=== PATIENT | female | born 1940 | race Two or more races ===

== ENCOUNTER 2023-06-26 13:36 | Inpatient (IN) | payer OTHER ==
[~2023-06-26] VITALS: Ht 170.2 cm; Wt 70.0 kg
[2023-06-26] MEDS ORDERED: NITROGLYCERIN 0.4 MG SL TAB SL PRN (17:45)
[2023-06-26] MEDS ORDERED: MORPHINE SULFATE INJ 2 MG/ml SYRG IV PRN (17:45)
[2023-06-26 17:54] VITALS: BP 110/61; PULSE 85; RESP 18; TEMP 98.1; O2SAT 91
[2023-06-26] MEDS ORDERED: LEVALBUTEROL HCL 1.25 MG/3 ML NEB NEB SCH (18:00)
[2023-06-26] MEDS: LEVALBUTEROL HCL 1.25 MG/3 ML NEB NEB SCH (18:00)
[2023-06-26] MEDS: IPRATROPIUM BROM 0.5 MG/2.5ML INH SOL NEB SCH (18:00)
[2023-06-26] MEDS ORDERED: LEVALBUTEROL HCL 1.25 MG/3 ML NEB ONE (19:24)
[2023-06-26] MEDS ORDERED: IPRATROPIUM BROM 0.5 MG/2.5ML INH SOL ONE (19:24)
[2023-06-26] MEDS ORDERED: BUDESONIDE (INHALATION) 0.5 MG/2 ML NEB ONE (19:24)
[2023-06-26 19:39] VITALS: O2SAT 92
[2023-06-26 19:40] VITALS: PULSE 78; RESP 20; O2SAT 92
[2023-06-26 20:00] VITALS: BP 108/42; PULSE 78; PULSE 80; RESP 17; TEMP 96.7; O2SAT 92
[2023-06-26] MEDS ORDERED: LOSA50TA46 PO (20:04)
[2023-06-26] MEDS ORDERED: GLIP10TA9 PO ×2 (20:04)
[2023-06-26] MEDS ORDERED: OXYB10GE PO (20:04)
[2023-06-26] MEDS ORDERED: ATEN100T PO (20:04)
[2023-06-26] MEDS ORDERED: HYDR12.59 PO (20:04)
[2023-06-26] MEDS ORDERED: GABA-339 PO (20:04)
[2023-06-26] MEDS ORDERED: SIMV20TA20 PO (20:04)
[2023-06-26] MEDS ORDERED: METF-371 PO (20:04)
[2023-06-26] MEDS ORDERED: CLOP75TA70 PO (20:04)
[2023-06-26] MEDS: SODIUM CHLORIDE 0.9% 1,000 ML IV SCH (21:59)
[2023-06-26 22:00] VITALS: BP 108/42; PULSE 78; RESP 17; TEMP 96.1; O2SAT 92
[2023-06-26] MEDS: BUDESONIDE (INHALATION) 0.5 MG/2 ML NEB NEB SCH (22:00)
[2023-06-26] MEDS: GABAPENTIN 400 MG CAP PO SCH (22:12)
[2023-06-26] MEDS: cefTRIAXone 1GM/50ML D5W 50 ML IV SCH (22:12)
[2023-06-26] MEDS: methylPREDNISolone SOD SUCC 125 MG/2 ML VL IV SCH (22:13)
[2023-06-27] VITALS (15 sets, daily range): BP systolic 97–135; BP diastolic 30–47; PULSE 59–96; RESP 16–20; TEMP 96.7–98.6; O2SAT 91–99
[2023-06-27 05:56] LABS: Anion Gap 10 (5-15); Carbon Dioxide 24 mmol/L (20-30); Chloride 98 mmol/L (98-107); Potassium 4.4 mmol/L (3.5-5.1); Sodium 132 mmol/L (136-145)
[2023-06-27] MEDS: GABAPENTIN 400 MG CAP PO SCH ×3 (05:56→21:46)
[2023-06-27 05:57] LABS: Calcium 8.9 mg/dL (8.5-10.1)
[2023-06-27] MEDS: methylPREDNISolone SOD SUCC 125 MG/2 ML VL IV SCH ×3 (05:57→21:45)
[2023-06-27 05:58] LABS: Basophils # (auto) 0 10 ^3/uL (0-0.2); Basophils % (auto) 0.1 % (0.0-2.0); Eosinophils # (auto) 0 10 ^3/uL (0-0.8); Hematocrit 38.5 % (36.0-46.0); Hemoglobin 12.9 g/dL (12.2-16.2); Lymphocytes # (auto) 0.7 10 ^3/uL (0.4-5.4); Lymphocytes % (auto) 5.9 % (10.0-50.0); Mean Corpuscular Hemoglobin 29.4 pg (28.0-32.0); Mean Corpuscular Hgb Conc. 33.4 g/dL (32.0-36.0); Mean Corpuscular Volume 87.9 fL (80.0-100.0); Monocytes # (auto) 0.2 10 ^3/uL (0-1.3); Monocytes % (auto) 1.8 % (0.0-12.0); Neutrophils # (auto) 10.4 10 ^3/uL (1.6-8.6); Neutrophils % (auto) 92.2 % (37.0-80.0); Nucleated Red Blood Cells % 0.1 %; Red Blood Cells 4.38 10^6/uL (4.0-5.20); Red Cell Distribution Width 13.6 % (11.8-14.3); White Blood Cell 11.2 10^3/uL (4.4-10.8)
[2023-06-27 06:02] LABS: BUN/Creatinine Ratio 29.9 (10.0-20.0); Blood Urea Nitrogen 38 mg/dL (9-23); Glucose 335 mg/dL (74-106)
[2023-06-27] MEDS: BUDESONIDE (INHALATION) 0.5 MG/2 ML NEB NEB SCH ×2 (06:34→18:29)
[2023-06-27] MEDS: LEVALBUTEROL HCL 1.25 MG/3 ML NEB NEB SCH ×3 (06:34→18:29)
[2023-06-27] MEDS: IPRATROPIUM BROM 0.5 MG/2.5ML INH SOL NEB SCH ×3 (06:35→18:29)
[2023-06-27] MEDS: FAMOTIDINE 20 MG TAB PO SCH (10:52)
[2023-06-27] MEDS: ATENOLOL 50 MG TAB PO SCH (10:58)
[2023-06-27] MEDS: ENOXAPARIN SOD 40 MG/0.4 ML SYRINGE SC SCH (13:43)
[2023-06-27] MEDS: SODIUM CHLORIDE 0.9% 1,000 ML IV SCH (13:59)
[2023-06-27 15:12] LABS: COVID19 ANTIGEN SOFIA FIA NEGATIVE (NEGATIVE)
[2023-06-27 15:14] LABS: Rapid Influenza A Negative (Negative); Rapid Influenza B Negative (Negative)
[2023-06-27 21:31] LABS: Urine Bacteria FEW /hpf (None Seen); Urine Blood Negative /uL (Negative); Urine Clarity Clear (Clear); Urine Color Colorless (Yellow); Urine Hyaline Cast FEW /lpf (0 - 2); Urine Mucus FEW (None Seen); Urine Protein, UAD Negative (Negative); Urine Specific Gravity 1.018 (1.001-1.035); Urine Urobilinogen Normal (Negative); Urine WBC 1 /hpf (0 - 5)
[2023-06-27] MEDS: ATORVASTATIN 20 MG TAB PO SCH (21:45)
[2023-06-27] MEDS: cefTRIAXone 1GM/50ML D5W 50 ML IV SCH (21:45)
[2023-06-28] VITALS (13 sets, daily range): BP systolic 94–133; BP diastolic 45–61; PULSE 45–92; RESP 18–20; TEMP 97.3–98.1; O2SAT 92–100
[2023-06-28] MEDS: SODIUM CHLORIDE 0.9% 1,000 ML IV SCH ×2 (03:05→08:57)
[2023-06-28] MEDS: GABAPENTIN 400 MG CAP PO SCH ×3 (05:59→21:11)
[2023-06-28] MEDS: methylPREDNISolone SOD SUCC 125 MG/2 ML VL IV SCH ×3 (05:59→17:45)
[2023-06-28] MEDS: IPRATROPIUM BROM 0.5 MG/2.5ML INH SOL NEB SCH ×3 (06:00→18:59)
[2023-06-28] MEDS: BUDESONIDE (INHALATION) 0.5 MG/2 ML NEB NEB SCH ×2 (06:00→18:59)
[2023-06-28] MEDS: LEVALBUTEROL HCL 1.25 MG/3 ML NEB NEB SCH ×3 (06:00→18:59)
[2023-06-28] MEDS: FAMOTIDINE 20 MG TAB PO SCH (08:57)
[2023-06-28] MEDS: ATENOLOL 50 MG TAB PO SCH (08:58)
[2023-06-28] MEDS: ENOXAPARIN SOD 40 MG/0.4 ML SYRINGE SC SCH (09:02)
[2023-06-28] MEDS ORDERED: IOHEXOL 350 MG/ML 100ML IJ ONE (13:58)
[2023-06-28 17:12] LABS: Chloride 99 mmol/L (98-107); Potassium 4.8 mmol/L (3.5-5.1)
[2023-06-28 17:13] LABS: Anion Gap 8 (5-15); Carbon Dioxide 20 mmol/L (20-30)
[2023-06-28 17:16] LABS: Calcium 8.1 mg/dL (8.5-10.1)
[2023-06-28 17:17] LABS: Sodium 127 mmol/L (136-145)
[2023-06-28 17:18] LABS: Blood Urea Nitrogen 40 mg/dL (9-23)
[2023-06-28 17:28] LABS: Glucose 463 mg/dL (74-106)
[2023-06-28] MEDS ORDERED: DEXTROSE (50%) 50ML SYRG IV PRN (17:45)
[2023-06-28] MEDS: InsuLIN REG 1unit/0.01ml Soln (100units/ml) SC SCH (17:53)
[2023-06-28] MEDS: ACCU-CHEK COMFORT CURVE STRIP VI SCH (17:53)
[2023-06-28] MEDS: ATORVASTATIN 20 MG TAB PO SCH (21:11)
[2023-06-28] MEDS: cefTRIAXone 1GM/50ML D5W 50 ML IV SCH (21:12)
[2023-06-28 21:36] LABS: Urine WBC None Seen /hpf (0 - 5)
[2023-06-28 21:51] LABS: Urine Bacteria NONE SEEN /hpf (None Seen); Urine Blood Negative /uL (Negative); Urine Clarity Clear (Clear); Urine Color Colorless (Yellow); Urine Protein, UAD Negative (Negative); Urine Specific Gravity 1.017 (1.001-1.035); Urine Urobilinogen Normal (Negative); Urine pH 5.5 (5.0-8.0)
[2023-06-29] VITALS (14 sets, daily range): BP systolic 121–141; BP diastolic 57–63; PULSE 64–81; RESP 18–20; TEMP 97.2–98; O2SAT 92–97
[2023-06-29] MEDS: InsuLIN REG 1unit/0.01ml Soln (100units/ml) SC SCH ×5 (00:27→23:49)
[2023-06-29] MEDS: ACCU-CHEK COMFORT CURVE STRIP VI SCH ×5 (00:27→23:42)
[2023-06-29] MEDS ORDERED: DEXTROSE (50%) 50ML SYRG IV PRN (01:30)
[2023-06-29] MEDS ORDERED: InsuLIN REG 1unit/0.01ml Soln (100units/ml) SC ONE (01:30)
[2023-06-29] MEDS ORDERED: SODIUM CHLORIDE 0.9% 500 ML IV ONE (01:30)
[2023-06-29] MEDS: methylPREDNISolone SOD SUCC 125 MG/2 ML VL IV SCH (05:57)
[2023-06-29] MEDS: GABAPENTIN 400 MG CAP PO SCH ×3 (05:57→22:25)
[2023-06-29] MEDS: LEVALBUTEROL HCL 1.25 MG/3 ML NEB NEB SCH ×3 (07:17→19:11)
[2023-06-29] MEDS: IPRATROPIUM BROM 0.5 MG/2.5ML INH SOL NEB SCH ×3 (07:17→19:11)
[2023-06-29] MEDS: BUDESONIDE (INHALATION) 0.5 MG/2 ML NEB NEB SCH ×2 (07:17→19:11)
[2023-06-29] MEDS ORDERED: ATENOLOL 50 MG TAB PO SCH (10:00)
[2023-06-29] MEDS: ENOXAPARIN SOD 40 MG/0.4 ML SYRINGE SC SCH (10:21)
[2023-06-29] MEDS: FAMOTIDINE 20 MG TAB PO SCH (10:25)
[2023-06-29] MEDS: ATENOLOL 50 MG TAB PO SCH (10:25)
[2023-06-29] MEDS: cefTRIAXone 1GM/50ML D5W 50 ML IV SCH (22:26)
[2023-06-29] MEDS: ATORVASTATIN 20 MG TAB PO SCH (22:26)
[2023-06-30] VITALS (17 sets, daily range): BP systolic 115–130; BP diastolic 39–54; PULSE 55–74; RESP 18; TEMP 97.4–98.3; O2SAT 91–100
[2023-06-30] MEDS: ACCU-CHEK COMFORT CURVE STRIP VI SCH ×3 (05:55→18:00)
[2023-06-30] MEDS: GABAPENTIN 400 MG CAP PO SCH ×2 (05:55→14:36)
[2023-06-30] MEDS: InsuLIN REG 1unit/0.01ml Soln (100units/ml) SC SCH ×3 (05:58→18:00)
[2023-06-30] MEDS: IPRATROPIUM BROM 0.5 MG/2.5ML INH SOL NEB SCH ×3 (07:16→19:13)
[2023-06-30] MEDS: BUDESONIDE (INHALATION) 0.5 MG/2 ML NEB NEB SCH ×2 (07:16→19:13)
[2023-06-30] MEDS: LEVALBUTEROL HCL 1.25 MG/3 ML NEB NEB SCH ×3 (07:16→19:13)
[2023-06-30] MEDS: ATENOLOL 50 MG TAB PO SCH (10:00)
[2023-06-30] MEDS ORDERED: IPRA0.00 IN (10:35)
[2023-06-30] MEDS ORDERED: ALBU108A5 IN (10:35)
[2023-06-30] MEDS ORDERED: ATEN100T PO (10:35)
[2023-06-30] MEDS: FAMOTIDINE 20 MG TAB PO SCH (10:50)
[2023-06-30] MEDS: ENOXAPARIN SOD 40 MG/0.4 ML SYRINGE SC SCH (11:11)
[2023-06-30] MEDS ORDERED: FUROSEMIDE 20 MG TAB PO ONE (15:45)
[2023-06-30 17:29] LABS: COVID19 ANTIGEN SOFIA FIA NEGATIVE (NEGATIVE)
[2023-07-01] MEDS ORDERED: FUROSEMIDE 20 MG TAB PO SCH (10:00)
== END 2023-06-30 20:37 | DRG 189 ==
LOC: TELE-WESTW 17:29
PROVIDERS: ADMIT Hospitalist; ATTEND Hospitalist
DX: J96.21 Acute and chronic respiratory failure with hypoxia (principal); J44.1 Chronic obstructive pulmonary disease with (acute) exacerbation; N39.0 Urinary tract infection, site not specified; J98.11 Atelectasis; J44.0 Chronic obstructive pulmonary disease with (acute) lower respiratory infection; E66.01 Morbid (severe) obesity due to excess calories; C50.919 Malignant neoplasm of unspecified site of unspecified female breast; E11.9 Type 2 diabetes mellitus without complications; E78.5 Hyperlipidemia, unspecified; I10 Essential (primary) hypertension; I48.91 Unspecified atrial fibrillation; R62.7 Adult failure to thrive; Z79.4 Long term (current) use of insulin; Z80.0 Family history of malignant neoplasm of digestive organs; Z68.24 Body mass index [BMI] 24.0-24.9, adult; Z88.5 Allergy status to narcotic agent; Z88.0 Allergy status to penicillin; Z82.49 Family history of ischemic heart disease and other diseases of the circulatory system; Z83.3 Family history of diabetes mellitus; Z85.3 Personal history of malignant neoplasm of breast; Z86.73 Personal history of transient ischemic attack (TIA), and cerebral infarction without residual deficits; Z79.899 Other long term (current) drug therapy
CPT/HCPCS: 36415; 71045; 71275; 80048; 81001; 82962; 83036; 83605; 83880; 84484; 85025; 85379; 87086; 87426; 87804; 93306; 93970; 94640; 97110; 97116; 97163; 97530; G0378; J0696; J1815

== ENCOUNTER 2024-07-11 13:00 | Emergency (ER) | payer OTHER ==
[~2024-07-11] VITALS: Ht 165.1 cm; Wt 63.5 kg
[~2024-07-11 13:00] MED LIST: ALBU108A5 IN; ATEN100T PO; CLOP75TA70 PO; GABA-339 PO; GLIP10TA9 PO; HYDR12.59 PO; IPRA0.00 IN; LOSA-534 PO; METF-371 PO; OXYB10GE PO; SIMV20TA20 PO
[2024-07-11 13:10] VITALS: O2SAT 94
--- NOTE | 2024-07-11 13:48 | ED.PDOC ---
History of Present Illness HPI Comments left foot cramp Chief Complaint: Lower Extremity Comments pt reports her left foot is cramped in one position and she can't move it. however, when asked about the color, she is not aware that the color is cyanotic. per EMS, visiting nurse also noticed the new cyanosis. pt reports no pain. she states she has neuropathy. denies afib, known PAD Time Seen by MD: 13:03 Primary Care Provider: unknown Reviewed Notes: Nurses Notes, Medications Allergies: Coded Allergies: Codeine (Verified Allergy, Unknown, 06/26/23) Penicillins (Verified Allergy, Unknown, 06/26/23) Home Meds Active Scripts Albuterol Sulfate (Albuterol Sulfate Hfa) 108 Mcg/Act Aer, 108 MCG IN Q6HPRN PRN, #1 AER Prov:HILLARY BOOKER MD 06/30/23 Ipratropium-Albuterol (Ipratropium Basco/Albut) 1 Terri Terri, 1 TERRI IN TID, #90 EA Prov:HILLARY BOOKER MD 06/30/23 Atenolol (Atenolol) 100 Mg Tab, 50 MG PO DAILY, #30 MG take 1/2 tablet (50mg) daily Prov:HILLARY BOOKER MD 06/30/23 Reported Medications Simvastatin (Simvastatin) 20 Mg Tab, 20 MG PO HS for 30 Days 06/26/23 Oxybutynin Chloride (Gelnique) 10 % Gel, 10 MG PO DAILY, #30 11 Refills 06/26/23 Gabapentin (Gabapentin) 600 Mg Tab, 600 MG PO QIDACHS for 30 Days, MG 06/26/23 Glipizide (Glipizide) 10 Mg Tab, 10 MG PO DAILY@LUNCH for 30 Days, MG 06/26/23 Glipizide (Glipizide) 10 Mg Tab, 20 MG PO DAILY@BREAKFAST for 30 Days, MG 06/26/23 Metformin Hydrochloride (Metformin Hcl) 850 Mg Tab, 850 MG PO TIDWM for 30 Days, MG 06/26/23 Clopidogrel Bisulfate (CLOPIDOGREL) 75 Mg Tab, 75 MG PO DAILY for 30 Days, MG 06/26/23 Losartan Potassium (Losartan Potassium) 50 Mg Tab, 50 MG PO DAILY for 30 Days, MG 06/26/23 Hydrochlorothiazide (Hydrochlorothiazide) 12.5 Mg Cap, 12 MG PO DAILY for 30 Days, MG 06/26/23 Information Source: Patient, Emergency Med Personnel Mode of Arrival: EMS Past Medical History PAST MEDICAL HISTORY: Cancer (history of breast cancer), COPD (on 2LO2), CVA, DM, High Lipids Surgical History (Other): bilateral mastectomy 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: No 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 Family History Family History: Reviewed,noncontributory to illness, No family hx of Cancer, No family hx of DM, No family hx of Heart claudio, No family hx of HTN, No family hx ofKidney claudio, No family hx of Liver claudio, No family hx of Lung claudio, No family hx of Stroke Social History Smoker: Non-Smoker Alcohol: Denies ETOH Use Drugs: Denies Drug Use Lives In: Home Constitutional: denies: chills, diaphoresis, fatigue, fever, malaise, sweats, weakness, others EENTM: denies: blurred vision, double vision, ear bleeding, ear discharge, ear drainage, ear pain, ear ringing, eye pain, eye redness, hearing loss, mouth pain, mouth swelling, nasal discharge, nose bleeding, nose congestion, nose pain, photophobia, tearing, throat pain, throat swelling, voice changes, others Respiratory: denies: cough, hemoptysis, orthopnea, SOB at rest, shortness of breath, SOB with excertion, stridor, wheezing, others Cardiovascular: denies: chest pain, dizzy spells, diaphoresis, Dyspnea on exertion, edema, irregular heart beat, left arm pain, lightheadedness, palpitations, PND, syncope, others Gastrointestinal: reports: others (left toes pale, rest of foot and distal tibia cyanotic, cold to touch non palpable DP or PT); denies: abdomen distended, abdominal pain, blood streaked bowels, constipated, diarrhea, dysphagia, difficulty swallowing, hematemesis, melena, nausea, poor appetite, poor fluid intake, rectal bleeding, rectal pain, vomiting Genitourinary: denies: abnormal vagina bleeding, burning, dyspareunia, dysuria, flank pain, frequency, hematuria, incontinence, pain, , vagina discharge, urgency, others Neurological: reports: numbness (bilateral feet), others (left foot unable to move); denies: dizziness, fainting, headache, left sided numbness, left sided weakness, paresthesia, pre-existing deficit, right sided numbness, right sided weakness, seizure, speech problems, tingling, tremors, weakness Musculoskeletal: reports: muscle stiffness (left foot); denies: back pain, gout, joint pain, joint swelling, muscle pain, neck pain, others Integumetry: reports: change in color; denies: bruises, change in hair/nails, dryness, laceration, lesions, lumps, rash, wounds, others Allergic/Immunocompromised: denies: Difficulty Healing, Frequent Infections, Hives, Itching, others Hematologic/Lymphatic: denies: anemia, blood clots, easy bleeding, easy bruising, swollen glands, others Endocrine: denies: excessive hunger, excessive sweating, excessive thirst, excessive urination, flushing, intolerance to cold, intolerance to heat, unexplained weight gain, unexplained weight loss, others Psychiatric: denies: anxiety, bipolar disorder, depression, hopeless, panic disorder, schizophrenia, sleepless, suicidal, others All Other Systems: Reviewed and Negative Physical Exam General Appearance: No Apparent Distress, Normal HEENT: Normal ENT Inspection, Pharynx Normal, TMs Normal Neck: Full Range of Motion, Non-Tender, Normal, Normal Inspection Respiratory: Chest Non-Tender, Lungs Clear, No Accessory Muscle Use, No Respiratory Distress, Normal Breath Sounds Cardiovascular: No Edema, No JVD, No Murmur, No Gallop, Normal Peripheral Pulses, Regular Rate/Rhythm Breast Exam: Deferred Gastrointestinal: No Organomegaly, Non Tender, No Pulsatile Mass, Normal Bowel Sounds, Soft Genitalia: Deferred Pelvic: Deferred Rectal: Deferred Extremities: No calf tenderness, Normal capillary refill, Normal inspection, Normal range of motion, Non-tender, No pedal edema, Other (left foot cyanotic from the distal tib. distal foot and toes are pale, cold, foot is pulseless) Musculoskeletal : Apperance: Normal Neurologic: Alert, kitchen assistant II-XII nml as Tested, No Motor Deficits, Normal Affect, Normal Mood, No Sensory Deficits Cerebellar Function: Normal Reflexes: Normal Skin: Dry, Normal Color, Warm Lymphatic: No Adenopathy Was a procedure done? Was a procedure done?: No EKG EKG : Pulse Rate (adult): 66 [place]: Normal Cardiac Rhythm: NSR Block: 1 Hypertrophy: None ST: Old Comments repeat ekg sb 41, no st changes. no dynamic changes now pt's HR is in the 60, after glucagon, without starting dopamine Differential Dx Considerations may include: DVT, cellulitis, peripheral vascular disease, ischemic limb, sepsis X-Ray, Labs, Meds, VS Vital Signs Date Time Temp Pulse Resp B/P (MAP) Pulse Ox O2 Delivery O2 Flow Rate FiO2 07/11/24 14:31 41 07/11/24 13:10 94 Nasal Cannula* 3 32 07/11/24 13:05 98.4 66 16 98/48 (65) 95 07/11/24 13:04 66 Lab Test 07/11/24 15:30 07/11/24 14:25 Range/Units Prothrombin Time Pending Prothrombin Time INR Pending Activated Partial Thromboplast Time Pending Lactic Acid Level Pending Troponin I High Sensitivity Pending SARS-CoV-2 Antigen (Rapid) Pending White Blood Count 20.1 H 4.4-10.8 10^3/uL Red Blood Count 5.15 4.0-5.20 10^6/uL Hemoglobin 14.9 12.2-16.2 g/dL Hematocrit 45.0 36.0-46.0 % Mean Corpuscular Volume 87.5 80.0-100.0 fL Mean Corpuscular Hemoglobin 29.0 28.0-32.0 pg Mean Corpuscular Hemoglobin Concent 33.1 32.0-36.0 g/dL Red Cell Distribution Width 13.8 11.8-14.3 % Platelet Count 286 140-450 10^3/uL Mean Platelet Volume 7.9 6.9-10.8 fL Neutrophils (%) (Auto) 86.2 H 37.0-80.0 % Lymphocytes (%) (Auto) 6.1 L 10.0-50.0 % Monocytes (%) (Auto) 7.3 0.0-12.0 % Eosinophils (%) (Auto) 0.1 0.0-7.0 % Basophils (%) (Auto) 0.3 0.0-2.0 % Neutrophils # (Auto) 17.3 H 1.6-8.6 10 ^3/uL Lymphocytes # (Auto) 1.2 0.4-5.4 10 ^3/uL Monocytes # (Auto) 1.5 H 0-1.3 10 ^3/uL Eosinophils # (Auto) 0 0-0.8 10 ^3/uL Basophils # (Auto) 0.1 0-0.2 10 ^3/uL Nucleated Red Blood Cells 0.1 % Sodium Level 126 L 136-145 mmol/L Potassium Level 4.6 3.5-5.1 mmol/L Chloride Level 88 L 98-107 mmol/L Carbon Dioxide Level 19 L 20-31 mmol/L Anion Gap 19 H 5-15 Blood Urea Nitrogen 63 H 9-23 mg/dL Creatinine 4.45 H 0.550-1.02 mg/dL Glomerular Filtration Rate Calc 9 >90 mL/min BUN/Creatinine Ratio 14.2 10.0-20.0 Serum Glucose 87 74-106 mg/dL Calcium Level 9.2 8.7-10.4 mg/dL Current Medications Medications (Trade) Dose Ordered Sig/Khanh Route Start Time Stop Time Status Last Admin Heparin Sodium (Porcine) 5,000 units ONCE ONCE IV 07/11/24 14:30 07/11/24 14:46 DC 07/11/24 14:50 Heparin Sodium/ Dextrose 250 ml @ 11 mls/hr [id number] IV 07/11/24 14:30 07/11/24 15:11 Glucagon (Glucagen) 1 mg ONCE ONCE IV 07/11/24 14:45 07/11/24 14:48 DC 07/11/24 15:01 Ceftriaxone Sodium 50 ml @ 100 mls/hr ONCE ONCE IV 07/11/24 15:00 07/11/24 15:29 DC 07/11/24 15:58 Sodium Chloride 1,700 ml @ 1,700 mls/hr ONCE ONCE IV 07/11/24 15:15 07/11/24 16:14 07/11/24 15:17 [place] [address] Ph: [phone] DIAGNOSTIC IMAGING Diagnostic Imaging Report : [id number] Signed PATIENT: KACIE HEART MACCT: [id number] UNIT: [id number] : 1940 LOC: ER ROOM / BED: / AGE / SEX: 84 / F ADM STATUS: REG ER SERVICE 1333 ORDERING PHYSICIAN: ADITYA POLK MD PROCEDURE(s): CXRP - CHEST PORTABLE REASON: preop ORDER NUMBER(s): [id number], ACCESSION NUMBER(s): [id number] CHEST RADIOGRAPH Indication: preop Technique: Single frontal view of the chest was obtained COMPARISON: XY CHEST PORTABLE on DOS: 06/27/23 FINDINGS: Lines and Tubes: Right chest port in satisfactory position. Lungs: Right lower lobe airspace disease. Pleura: Small right pleural effusion. No pneumothorax. Cardiomediastinal contours: Unremarkable Bones: Unremarkable IMPRESSION: Right lower lobe airspace disease. Possible small right pleural effusion. ATED BY: VINCENT PENNINGTON MD DICTATED DATE/TIME: 07/11/24 135 SIGNED BY: VINCENT PENNINGTON MD SIGNED DATE/TIME: 07/11/24 135 CC: [place] [address] Ph: [phone] DIAGNOSTIC IMAGING Diagnostic Imaging Report : [id number] Signed PATIENT: KACIE HEART MACCT: [id number] UNIT: [id number] : 1940 LOC: ER ROOM / BED: / AGE / SEX: 84 / F ADM STATUS: REG ER SERVICE 1330 ORDERING PHYSICIAN: ADITYA POLK MD PROCEDURE(s): LLEAD - Lt Low Ext Art Duplex REASON: aterial occlusion ORDER NUMBER(s): [id number], ACCESSION NUMBER(s): [id number] Left Lower Extremity Arterial Duplex Clinical History: aterial occlusion Comparison: None Technique: Duplex Doppler evaluation including color Doppler and spectral/pulsed waveform analysis of the lower extremity arteries was performed. 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 IMPRESSION: No flow from the left mid superficial femoral artery to the dorsalis pedis artery consistent with occlusion. Minimal flow within the left proximal superf icial femoral artery. Multiple attempts were made to contact provider without success. REFERENCE VALUES, [facility] ([facility]) vascular Imaging Lab Criteria: Peak systolic velocity ranges (in cm/sec) are as follows: <150 cm/s - <20 % stenosis 150-200 cm/s - 20-49% stenosis 200-300 cm/s - 50-75% stenosis >300 cm/s -> 75% stenosis ATED BY: MARIA DEL ROSARIO MOREIRA DO DICTATED DATE/TIME: 07/11/241440 SIGNED BY: MARIA DEL ROSARIO MOREIRA DO SIGNED DATE/TIME: 07/11/241440 CC: Time of 1ST Reevaluation: 14:36 Reevaluation 1ST: Unchanged (pt reports no symptoms. she is resting comforetably. she has sb, and is on atenolol. i ordered glucagon and heparin for the critical arterial occlusion by exam. cardiac rhythm- nsr) Time of 2ND Reevaluation: 14:53 Reevaluation 2ND: Unchanged (us confirmed occlusion of left mid superficial fem art. i will consult IR, interventional cardiology . cardiac rhythm, sb) Reevaluation 3RD: Improved (cardiology came by and requests for vascular surgery to be consulted first. in the meantime, i am starting sesis protocol, since pt is becoming hypotensive. pt is unaware she has a history of afib, and denies bleeding history,m intracranial bleed, or mass, or recent surgeries. cardiac rhythm, nsr) Patient Education/Counseling: Diagnosis, Treatment, Prognosis Family Education/Counseling: No Family Present Additional Information i spoke to the EMS as independent historian. i also reviewed the medical record which showed she was admitted last year for copd exacerbation, which also shows she has afib and is on plavix i ordered and reviewed cbc, chemistry, trop, lactic acid, coagulation panel, viral panel, ekg's, cxr, us and reviewed their results. i also reviewed and agree with radiology re: cxr and US. i discussed the case with consultants, and medical personnel. pt will be admitted to have emergency intervention for the critical limb ischemia and risks of the intervention and pt's personal risks are considered code status is discussed. pt is full DNR, but would accept interventional care for the ischemic limb. Dr Ochoa was consulted. he would like pt transferred, but pt is not stable. so far vascular has not returned our call. i will call interventional cardiology Dr Hua, interventional cardiology, chief of cardiology, who feels if vascular is not available, which is the case, we will have to transfer pt to higher level of care, despite of pt being unstable, since without intervention, pt may eventually from the ischemic limb. i will start working on transferring pt. in the meantime, she will be put on dopamine. pt remains alert, oriented, and has been updated by me, is agreeable with plan. i did speak to pt regarding the risks of the transfer for her condition and the benefits [facility] is on saturation. Dr Randolph at [facility] accepted the transfer Sepsis Sepsis Reasesment Focused Exam Sepsis focused exam: focus exam completed (pt is improved with her HR, and remains alert, very comfortable and has no complaints), time: (1614) Departure 1 Departure Time of Disposition: 16:16 Impression: Primary Impression: Ischemic leg Additional Impressions: Pneumonia Qualified Codes: J18.9 - Pneumonia, unspecified organism Sepsis Qualified Codes: A41.9 - Sepsis, unspecified organism Bradycardia Septic shock Disposition: 02 SHORT TERM HOSPITAL Condition: Guarded Discharged With: Self Critical Care Note Critical Care Time?: Yes (1 hr-critical care time only) Critical care comment: due to concerns for patient's condition deteriorating, the care required my highest level of attention and readiness to intervene. i reviewed any external notes, communicatd with medical personnel, assessed the pt, ordered the proper tests and treatments, and reassessed for response, formulated a plan of care. the critical care time excludes any procedures Stability Stability form required: No Heart Score Heart Score: Heart Score Response (Comments) Value History N/A 0 EKG N/A 0 Age N/A 0 Risk Factors N/A 0 Troponin N/A 0 Total 0 I personally scribed for ADITYA POLK MD ([email or web address]) on 07/11/24 at 15:16. Electronically submitted by Kristine Ruiz ([email or web address]). ADITYA POLK MD Jul 11, 2024 13:48
--- NOTE | 2024-07-11 13:59 | DVH ---
CHEST RADIOGRAPH Indication: preop Technique: Single frontal view of the chest was obtained COMPARISON: XY CHEST PORTABLE on DOS: 06/27/23 FINDINGS: Lines and Tubes: Right chest port in satisfactory position. Lungs: Right lower lobe airspace disease. Pleura: Small right pleural effusion. No pneumothorax. Cardiomediastinal contours: Unremarkable Bones: Unremarkable IMPRESSION: Right lower lobe airspace disease. Possible small right pleural effusion.
--- NOTE | 2024-07-11 14:32 | ECG ---
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
--- NOTE | 2024-07-11 14:43 | DVH ---
Left Lower Extremity Arterial Duplex Clinical History: aterial occlusion Comparison: None Technique: Duplex Doppler evaluation including color Doppler and spectral/pulsed waveform analysis of the lower extremity arteries was performed. 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 IMPRESSION: No flow from the left mid superficial femoral artery to the dorsalis pedis artery consistent with occ lusion. Minimal flow within the left proximal superficial femoral artery. Multiple attempts were made to contact provider without success. REFERENCE VALUES, [facility] ([facility]) vascular Imaging Lab Criteria: Peak systolic velocity ranges (in cm/sec) are as follows: <150 cm/s - <20 % stenosis 150-200 cm/s - 20-49% stenosis 200-300 cm/s - 50-75% stenosis >300 cm/s -> 75% stenosis
[2024-07-11] MEDS: HEPARIN SODIUM (PORCINE) 5000 UNITS/ML 1ML VIAL IV ONE (14:50)
[2024-07-11] MEDS: GLUCAGON EMERG KIT 1mg/1ml IV ONE (15:01)
[2024-07-11 15:04] LABS: Potassium 4.6 mmol/L (3.5-5.1)
[2024-07-11 15:05] LABS: Anion Gap 19 (5-15); Calcium 9.2 mg/dL (8.7-10.4)
[2024-07-11 15:10] LABS: BUN/Creatinine Ratio 14.2 (10.0-20.0); Glucose 87 mg/dL (74-106)
[2024-07-11] MEDS: HEPARIN DRIP/D5W 100UNITS/ML 250 ML IV SCH (15:11)
[2024-07-11 15:12] LABS: Blood Urea Nitrogen 63 mg/dL (9-23); Carbon Dioxide 19 mmol/L (20-31); Chloride 88 mmol/L (98-107); Sodium 126 mmol/L (136-145)
[2024-07-11] MEDS: SODIUM CHLORIDE 0.9% 1,700 ML IV ONE (15:17)
[2024-07-11 15:21] LABS: Basophils # (auto) 0.1 10 ^3/uL (0-0.2); Basophils % (auto) 0.3 % (0.0-2.0); Eosinophils # (auto) 0 10 ^3/uL (0-0.8); Eosinophils % (auto) 0.1 % (0.0-7.0); Hemoglobin 14.9 g/dL (12.2-16.2); Lymphocytes # (auto) 1.2 10 ^3/uL (0.4-5.4); Lymphocytes % (auto) 6.1 % (10.0-50.0); Mean Corpuscular Hgb Conc. 33.1 g/dL (32.0-36.0); Mean Corpuscular Volume 87.5 fL (80.0-100.0); Monocytes # (auto) 1.5 10 ^3/uL (0-1.3); Monocytes % (auto) 7.3 % (0.0-12.0); Neutrophils # (auto) 17.3 10 ^3/uL (1.6-8.6); Neutrophils % (auto) 86.2 % (37.0-80.0); Nucleated Red Blood Cells % 0.1 %; Platelet Count (auto) 286 10^3/uL (140-450); Red Blood Cells 5.15 10^6/uL (4.0-5.20); Red Cell Distribution Width 13.8 % (11.8-14.3); White Blood Cell 20.1 10^3/uL (4.4-10.8)
[2024-07-11] MEDS ORDERED: DOPamine 1600MCG/ML D5W 250 ML IV ONE (15:45)
[2024-07-11] MEDS: cefTRIAXone 1GM/50ML D5W 50 ML IV ONE (15:58)
[2024-07-11] MEDS ORDERED: VANCOMYCIN PER PHARMACY 0 MG IV SCH (16:00)
[2024-07-11] MEDS ORDERED: cefTRIAXone 1GM/50ML D5W 50 ML IV ONE (16:12)
[2024-07-11 16:16] LABS: Lactic Acid w/Reflex 4.8 mmol/L (0.4-2.0)
--- NOTE | 2024-07-11 16:20 | DVH ---
LEFT lower extremity venous duplex Clinical History: PAIN Comparison: US LT LOW EXT ART DUPLEX on DOS: 07/11/24, US BILAT LOWER DVT on DOS: 06/27/23 Technique: Duplex Doppler evaluation of the deep venous systems of both lower extremities from the common femora l veins to the popliteal veins including color Doppler and spectral/pulsed waveform analysis was perf ormed. Findings: LEFT SIDE: The common femoral vein demonstrates appropriate compressibility and waveform variability. There is compressibility/patency of the great saphenous vein at the proximal thigh. The femoral vein demonstrates appropriate compressibility and waveform variability. The deep femoral vein demonstrates appropriate compressibility and waveform variability. The popliteal vein demonstrates appropriate compressibility and waveform variability. There is normal compressibility at the tibioperoneal trunk. Impression: 1. No left femoropopliteal venous thrombosis.
[2024-07-11] MEDS: VANCOMYCIN 1GM/250ML KIT 250 ML IV ONE (16:56)
[2024-07-11] MEDS ORDERED: diphenhdrAMINE HCL 50 MG/1 ML VL ONE (17:12)
[2024-07-11] MEDS: diphenhdrAMINE HCL 50 MG/1 ML VL IV ONE (17:14)
[2024-07-11 17:37] LABS: Prothrombin Time 13.8 sec (9.3-11.8)
[2024-07-11 17:38] LABS: INR 1.33 (0.9-1.15)
[2024-07-11 17:40] LABS: Partial Thromboplastin Time > 139.0 SEC (24.5-34.5)
[2024-07-11 17:45] VITALS: BP 81/19; PULSE 43; RESP 13; O2SAT 94
[2024-07-11] MEDS ORDERED: VANCOMYCIN 1GM/250ML KIT 200 ML IV SCH (22:00)
[2024-07-11] MEDS ORDERED: PIPERACILLIN-TAZO 4.5GM 100 ML IV SCH (22:00)
--- NOTE | 2024-07-12 13:09 | ECG ---
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
== END 2024-07-11 18:03 | disposition short-term general hospital (02) ==
LOC: EDBD 13:00 → ER 13:00
DX: J18.9 Pneumonia, unspecified organism (principal); I99.8 Other disorder of circulatory system; R00.1 Bradycardia, unspecified; R65.21 Severe sepsis with septic shock; E11.9 Type 2 diabetes mellitus without complications; E78.5 Hyperlipidemia, unspecified; J44.9 Chronic obstructive pulmonary disease, unspecified; Z86.73 Personal history of transient ischemic attack (TIA), and cerebral infarction without residual deficits; Z85.3 Personal history of malignant neoplasm of breast; Z98.890 Other specified postprocedural states; Z88.0 Allergy status to penicillin; Z88.5 Allergy status to narcotic agent; Z79.02 Long term (current) use of antithrombotics/antiplatelets; Z79.84 Long term (current) use of oral hypoglycemic drugs; Z79.899 Other long term (current) drug therapy
CPT/HCPCS: 36415; 71045; 80048; 83605; 84484; 85025; 85610; 85730; 87040; 93005; 93926; 93971; 96361; 96365; 96367; 96375; 99291; J0696; J1200; J1265; J1610; J1644; J3370; J7030